=== PATIENT | male | born 2000 | race Two or more races ===

== ENCOUNTER → 2021-09-05 | Emergency (ER) | payer OTHER ==
[~2021-09-05] VITALS: Ht 170.2 cm; Wt 72.6 kg
== END | disposition left against medical advice (07) ==
LOC: ER 16:51
DX: Z53.21 Procedure and treatment not carried out due to patient leaving prior to being seen by health care provider (principal)

== ENCOUNTER 2022-10-21 04:57 | Emergency (ER) | payer OTHER ==
[~2022-10-21] VITALS: Ht 167.6 cm; Wt 81.6 kg
== END 2022-10-21 18:23 | disposition home or self-care (01) ==
LOC: ER 04:57
DX: M62.830 Muscle spasm of back (principal)